=== PATIENT | female | born 1995 | race Caucasian/White ===

== ENCOUNTER 2017-04-21 21:26 | Inpatient (IN) | payer BC, OTHER ==
[~2017-04-21] VITALS: Ht 157.5 cm; Wt 45.4 kg
[2017-04-22 00:45] VITALS: BP 111/72
[2017-04-22] MEDS ORDERED: MIRALAX 17 GM POWD.PACK PO PRN (00:45)
[2017-04-22] MEDS ORDERED: ACETAMINOPHEN 325 MG TABLET PO PRN (00:45)
[2017-04-22] MEDS ORDERED: CLONIDINE HCL 0.1 MG TABLET PO PRN (00:45)
[2017-04-22] MEDS ORDERED: MAG HYDROX/AL HYDROX/SIMETH 30 ML LIQUID UDC PO PRN (00:45)
[2017-04-22] MEDS ORDERED: IBUPROFEN 400 MG TABLET PO PRN (00:45)
[2017-04-22] MEDS ORDERED: MAGNESIUM HYDROXIDE 30 ML LIQUID UDC PO PRN (00:45)
[2017-04-22] MEDS ORDERED: PROMETHAZINE HCL 25 MG/1 ML VIAL IM PRN (00:45)
[2017-04-22] MEDS ORDERED: ONDANSETRON ODT 4 MG TAB.RAPDIS SL PRN (00:45)
[2017-04-22] MEDS ORDERED: diphenhydrAMINE 50 MG CAPSULE PO PRN (00:45)
[2017-04-22] MEDS ORDERED: LOPERAMIDE HCL 2 MG CAPSULE PO PRN ×2 (00:45)
[2017-04-22] MEDS ORDERED: DICYCLOMINE HCL 20 MG TABLET PO PRN (00:45)
[2017-04-22] MEDS ORDERED: BUPRENORPHINE HCL 2 MG TAB.SUBL SL PRN (00:45)
--- NOTE | 2017-04-22 00:45 | NUR ---
PRE-ADMISSION NOTE: Patient assessed in intake office at 0045 on 04/22/2017. Patient is ambulatory with steady gate, stable, alert and oriented x4. Speech is soft and clear. VS: T: 98'1; BP: 111/72; HR: 79; RR: 18; O2 SAT: 100%. Pain level of generalized body aches:"05/27". Patient states that she is in the [facility] "first time for Safety Detox from Benzodiazepines and Heroin ". Patient reports last use Heroin IV:"04/21/17@ 1999"."Less than 1 gram. I do not remember amount of last doze exactly". Patient reports "Prescription drugs" uses: Clonazepam PO:"2 mg per day. Last taken 04/21/17: 2mg @ 1000 "; Sertraline PO:"200 mg per day Last taken 2 months ago: 200 mg"; Gabapentin PO:"1800 mg per day. Last taken 04/21/17: 600 mg @ 1200". Patient's COWS 9, CIWA 7. The patient reported the following symptoms of withdrawal: anxiety, agitation, nervousness, tremors, body aches, diaphoresis, abdominal cramps, headache, restless legs, and fatigue. Patient reports that she has been recently in "detox treatment at "[facility]": [place], [place] on 01/2017. Patient instructed on unit protocol of vitals Q4H and COWS/CIWA assessments. Patient verbalized understanding and agreement. Patient also instructed on policy regarding destruction of any controlled substances/prescriptions brought to facility, and handling of all medications. Patient verbalized understanding and agreement. Will complete admission assessment when patient is brought up to unit.
--- NOTE | 2017-04-22 00:50 | NUR ---
ADMISSION NOTE: Patient is a 22 old female admitted to [facility] on 04/22/17 at 0050 for Benzodiazepines and Opioid dependence. Patient is ambulatory with steady gate, stable, alert and oriented x4. Speech is soft and clear. Patient has NKA, is on Regular Diet, and is Full Code status. Patient is on Seizure and Fall Precautions. PMH: Anxiety, Depression, Substance Abuse, Tobacco dependence, Lupus, RA, Scoliosis, Fractures of left wrist (2016); Fracture of Ribs (2016); Fracture of Left foot (2016); Fracture of collar bone (2017). Patient has no PCP. Patient reports last use Heroin IV:"04/21/17@ 2000 less than 1 gram". Patient does "not remember amount of last doze exactly". Patient reports "prescription drugs" uses: Clonazepam PO:" 2 mg per day. Last taken 04/21/17: 2mg @ 1000 "; Sertraline PO:"200 mg per day Last taken 2 months ago: 200 mg"; Gabapentin PO:"1800 mg per day. Last taken 04/21/17: 600 mg @ 1200". Patient's COWS 9, CIWA 7. Patient reported the following symptoms of withdrawal: Anxiety, agitation, nervousness, tremors, body aches, diaphoresis, abdominal cramps, headache, restless legs, and fatigue. Patient reports that she has been recently in "Detox treatment at "[place], [place] on 01/2017. VS: T: 98'1; BP: 111/72; HR: 79; RR: 18; O2 SAT: 100%. Pain level of generalized body aches:"7/10". Breathing is even and unlabored. Patient denies chest pain and SOB. Lungs Sounds are clear bilaterally. Bowel Sounds are active in all 4 quadrants. Last bowel Movement was " 04/20/17, in the morning". Patient has track boss on the both upper extremities. Skin is warm and dry to touch. UDS test and Urine for Test collected and sent to Laboratory, as ordered. Doctor Rigoberto Steen MD aware for patient's condition. Patient. is oriented to her room and unit, education provided on Hep.C, substance abuse, falls and seizures. Patient did not brought her home medications. All needs met. Safety measures in the place. Call light within reach, bed in the lowest position, and locked, padded bed rails up x2. Will continue to monitor closely. Addendum: 04/22/17 at 1013 by NINFA CONSTANTINO RN Pt reports using Klonopin PO 1mg BID for the past 2 months and Heroin IV 1-3grams for the past 2 months.
[2017-04-22 01:31] LABS: ALANINE AMINOTRANSFERASE 99 U/L (14-59); ALKALINE PHOSPHATASE 118 U/L (50-136); AMYLASE 51 U/L (25-115); ASPARTATE AMINOTRANSFERASE 100 U/L (15-37); BILIRUBIN,TOTAL 0.2 mg/dL (0.2-1.0); CARBON DIOXIDE 29 mmol/L (21-32); CHLORIDE 101 mmol/L (98-107); CREATININE 0.7 mg/dL (0.6-1.3); GLUCOSE 118 mg/dL (74-106); LIPASE 155 U/L (73-393); MAGNESIUM 1.5 mg/dL (1.8-2.4); POTASSIUM 3.7 mmol/L (3.5-5.1); TOTAL PROTEIN, SERUM 7.8 g/dL (6.4-8.2); UREA NITROGEN, BLOOD 8 mg/dL (7-18)
[2017-04-22 01:37] LABS: BASOPHILS % (AUTO) 0.4 % (0.0-2.0); EOSINOPHILS # (AUTO) 0.4 K/uL (0.0-0.7); EOSINOPHILS % (AUTO) 5.7 % (0.0-7.0); HEMATOCRIT 40.8 % (37-47); HEMOGLOBIN 13.7 G/DL (12.0-16.0); LYMPHOCYTES # (AUTO) 1.7 K/UL (0.8-4.8); LYMPHOCYTES % (AUTO) 23.1 % (20.5-51.5); MEAN CORPUSCULAR HEMOGLOBIN 29.5 UUG (27.0-31.0); MEAN CORPUSCULAR HGB CONC 34 g/dL (32.0-37.0); MEAN CORPUSCULAR VOLUME 87.5 FL (81.0-99.0); MONOCYTES # (AUTO) 0.9 K/UL (0.1-1.30); MONOCYTES % (AUTO) 11.4 % (0.0-11.0); NEUTROPHILS # (AUTO) 4.5 K/UL (1.8-8.9); NEUTROPHILS % (AUTO) 59.4 % (38.5-71.5); PLATELET COUNT (AUTO) 303 K/UL (150-450); RED BLOOD CELL COUNT(AUTO) 4.66 MIL/UL (4.2-5.4); WHITE BLOOD COUNT (AUTO) 7.5 K/UL (4.0-11.2)
[2017-04-22 01:41] LABS: THYROID STIMULATING HORMONE 0.605 mIU/mL (0.358-3.740)
[2017-04-22] MEDS ORDERED: LORAZEPAM 1 MG TABLET PO PRN ×2 (01:45)
[2017-04-22] MEDS ORDERED: LORAZEPAM 2 MG/1 ML VIAL IM PRN (01:45)
[2017-04-22 02:22] LABS: ETHANOL < 3 MG/DL (0-0)
[2017-04-22 02:37] LABS: *URINE HCG, QUAL NEGATIVE (NEGATIVE)
[2017-04-22 02:38] LABS: *AMPHETAMINE, URINE NEGATIVE (NEGATIVE); *BARBITURATE, URINE NEGATIVE (NEGATIVE); *CANNABINOID, URINE NEGATIVE (NEGATIVE); *COCCAINE, URINE NEGATIVE (NEGATIVE); *OPIATE, URINE POSITIVE (NEGATIVE); *PHENCYCLIDINE SCREEN,URINE NEGATIVE (NEGATIVE)
[2017-04-22] MEDS ORDERED: CLON1TAB4 PO (03:13)
[2017-04-22] MEDS ORDERED: GABA600T2 PO (03:15)
[2017-04-22] MEDS ORDERED: SERT100T PO (03:22)
[2017-04-22 04:00] VITALS: BP 92/58
[2017-04-22] MEDS ORDERED: MAGNESIUM OXIDE 400 MG TABLET PO ONE (06:00)
--- NOTE | 2017-04-22 07:00 | NUR ---
END OF SHIFT NOTE: Patient endorsed to Jenna day shift nurse in stable condition. Patient is a 22 old female admitted to [facility] on 04/22/17 for Benzodiazepines and Opioid dependence. Patient has NKA, is on Regular Diet, and is Full Code status. Patient is on Seizure and Fall Precautions. PMH: Anxiety, Depression, Substance Abuse, Tobacco dependence, Lupus, RA, Scoliosis, Fractures of left wrist (2016); Ribs (2016); Left foot (2016); Collar bone (2017). Patient reports last use Heroin IV:"04/21/17@ 2000 less than 1 gram". Patient does "not remember amount of last doze exactly". Patient reports "prescription drugs" uses: Clonazepam PO:" 2 mg per day. Last taken 04/21/17: 2mg @ 1000 "; Sertraline PO:"200 mg per day Last taken 2 months ago: 200 mg"; Gabapentin PO:"1800 mg per day. Last taken 04/21/17: 600 mg @ 1200". COWS 8, CIWA 7 at 0400. Patient presented with the following symptoms of withdrawal: Anxiety, agitation, nervousness, tremors, body aches, diaphoresis, abdominal cramps, nasal stuffy, moist eyes, mild headache, restless legs, and fatigue. VS WNL. Magnesium Level at 0105: 1.5 mg/dl L. Replacement with Mag-Ox 400 mg 1 tab PO given as ordered at 0600. Patient tolerated well. Respiration is even and unlabored. Skin is warm and dry to touch. Track boss on the both upper extremities. Patient slept 3hours 30 minutes, intake 355 ml., voided x 1. All needs met. Safety measures in the place. Call light within reach, bed in the lowest position, and locked, padded bed rails up x2.
[2017-04-22] MEDS ORDERED: ONDANSETRON 4 MG/2 ML VIAL IM PRN (07:15)
--- NOTE | 2017-04-22 08:00 | NUR ---
START OF SHIFT Received report from wood preparation supervisor nurse. 22 year old female patient admitted on 04/21/17 for Heroin, Clonazepam dependence. Pt is A/O x4. Denies past seizure hx. Primary medical history of anxiety, depression, lupus, RA, and multiple bone fractures. Pt ambulates with steady gait. No acute distress noted throughout night. Pt slept for 3 hours. Most recent COWS 8 and CIWA 7. Safety precautions are in place, will continue to monitor.
[2017-04-22] MEDS ORDERED: TUBERCULIN,PURIF.PROT.DERIV. 5 TU/0.1 ML TEST ID ONE (09:00)
[2017-04-22 09:29] VITALS: BP 104/60
[2017-04-22] MEDS: MULTIVITAMINS,THERAPEUTIC TABLET PO SCH (10:05)
--- NOTE | 2017-04-22 10:13 | NUR ---
PRN MEDICATIONS PRN Subutex 4mg administered for COWS of 12, pt reports increased nausea, increased restlessness and anxiety, yawning, chills, PRN Ativan 1mg CIWA is 8, PRN Zofran for nausea, no emesis noted, PRN Bentyl for stomach cramps 5/10. Education provided. Will reassess.
--- NOTE | 2017-04-22 11:26 | NUR ---
REASSESSMENT Pt reports all medications were effective, denies nausea/cramps at this time. PRN Subutex and Ativan effective also, pt requests to rest at this time. Addendum: 04/22/17 at 1130 by NINFA CONSTANTINO RN COWS are 8, CIWA is 5.
[2017-04-22 12:37] VITALS: BP 103/63
[2017-04-22] MEDS: BUPRENORPHINE HCL 2 MG TAB.SUBL SL SCH ×3 (13:17→21:23)
[2017-04-22] MEDS: LORAZEPAM 1 MG TABLET PO SCH ×3 (13:17→20:44)
[2017-04-22] MEDS ORDERED: BUPRENORPHINE HCL 2 MG TAB.SUBL SL ONE (13:25)
[2017-04-22] MEDS ORDERED: LORAZEPAM 1 MG TABLET ONE (13:26)
--- NOTE | 2017-04-22 14:10 | NUR ---
Therapist advised client of group times. Client did not attend morning group because she was tired.
--- NOTE | 2017-04-22 14:20 | NUR ---
1300 MEDICATIONS 1317 Subutex 4mg and Ativan 2 mg administered as ordered. Override on Pyxis with charge nurse due to [employer] and pyxis communication error. Pharmacy aware.
[2017-04-22] MEDS: GABAPENTIN 300 MG CAPSULE PO SCH ×2 (14:28→20:43)
[2017-04-22] MEDS: METHOCARBAMOL 750 MG TABLET PO PRN (14:32)
--- NOTE | 2017-04-22 14:33 | NUR ---
PRN ROBAXIN Pt c/o 05/27 muscle aches, PRN Robaxin administered as ordered. Will reassess.
--- NOTE | 2017-04-22 15:32 | NUR ---
REASSESSMENT Pt states that the Robaxin was effective and denies muscle aches at this time.
[2017-04-22 17:01] VITALS: BP 104/63
--- NOTE | 2017-04-22 18:48 | NUR ---
END OF SHIFT Endorsed to assistant shift supervisor nurse. 22 year old female patient admitted on 04/21/17 for Heroin, Clonazepam dependence. Pt was started on a 5 day Subutex and 5 day Ativan taper and is tolerating well. Pt is A/O x4. Denies past seizure hx. Primary medical history of anxiety, depression, lupus, RA, and multiple bone fractures. Pt ambulates with steady gait. Most recent COWS 8 and CIWA 7. PRN Zofran, Ativan, Subutex and Robaxin administered and effective. Pt reports BM x1. All needs met at this time. Pt encouraged to attend group activities and meetings but chooses to rest today as withdrawal discomfort is present. Safety precautions are in place, will continue to monitor.
--- NOTE | 2017-04-22 18:48 | NUR ---
START OF SHIFT NOTE: Patient endorsed by outgoing day shift nurse in stable condition. Patient is a 22 old female admitted to [facility] on 04/22/17 for Benzodiazepines and Opioid dependence. Patient is on 5 Day Ativan Taper since 04/22/17, tolerated well. Patient has NKA, is on Regular Diet, and is Full Code status. Patient is on Seizure and Fall Precautions. PMH: Anxiety, Depression, Substance Abuse, Tobacco dependence, Lupus, RA, Scoliosis, Fractures of left wrist (2016); Ribs (2016); Left foot (2016); Collar bone (2017). COWS 8, CIWA 7 at 1701. Patient presented with the of withdrawal s/s: Anxiety, agitation, nervousness, resting pulse rate increased more than 80: "88" - record per minute, tremors, body aches, diaphoresis, nasal stuffy, moist eyes, mild headache, restlessness, fatigue, and yawning. VS WNL. Patient remains compliant with treatment plan, medications, and diet regimen. Respiration is even and unlabored. Breathing is even and unlabored. Patient denies chest pain and SOB. Lungs Sounds are clear bilaterally. Bowel Sounds are active in all 4 quadrants. Last Bowel Movement was " 04/22/17 at 1500". Skin is warm and dry to touch. Track boss on the both upper extremities. Encourage to fluids intake, as tolerated. All needs met. Safety measures in the place. Call light within reach, bed in the lowest position, and locked, padded bed rails up x2. Will continue to monitor closely. Addendum: 04/22/17 at 1954 by MEG SIMPSON RN Patient is on 5 Day Ativan and 5 Day Subutex Taper since 04/22/17, tolerated well.
[2017-04-22 20:00] VITALS: BP 112/77
[2017-04-22] MEDS: SERTRALINE HCL 100 MG TABLET PO SCH (21:23)
[2017-04-23] VITALS: BP 102/65
[2017-04-23 04:00] VITALS: BP 102/54
--- NOTE | 2017-04-23 06:56 | NUR ---
END OF SHIFT NOTE: Patient endorsed to Jenna day shift nurse in stable condition. Report given. Patient is a 22 old female admitted to [facility] on 04/22/17 for Clonazepam and Heroin dependence. Patient has NKA, is on Regular Diet, and is Full Code status. Patient is on Seizure and Fall Precautions. PMH: Anxiety, Depression, Substance Abuse, Tobacco dependence, Lupus, RA, Scoliosis, Fractures healed of left wrist, ribs, left foot (2016), and collar bone (2017). Latest COWS 5, CIWA 4 at 0400. During shift patient presented with the following symptoms of withdrawal: Anxiety, agitation, nervousness, restlessness, tremors that can be felt, body aches, diaphoresis, nasal stuffy, moist eyes, headache, and fatigue. VS @ 0400: T: 97'6, HR: 90, BP: 102/54, RA O2Sat: 95%, RR: 16. Respiration is even and unlabored. Skin is warm and dry to touch. Track boss on the both upper extremities. Patient remains compliant with treatment, medications, and diet regimen. Patient's educated of relaxation skills. Encourage to fluids intake, as tolerated. Encourage to attend activities and therapy groups regularly. Patient slept 4 hours, intake 1200 ml, voided x1. All needs met. Safety measures in the place. Call light within reach, bed in the lowest position, and locked, padded bed rails up x2.
[2017-04-23 08:00] VITALS: BP 109/68
--- NOTE | 2017-04-23 08:00 | NUR ---
START OF SHIFT NOte Received patient laying in bed AOx4. Patient presents drowsy and fatigued with flat affect. Patient complains of mild nausea, body aches, and anxiety. Patient on 5 day Subutex/ 5 day Ativan taper. She slept 4 hours. No PRNS given during hunter trapper. COWS 6 CIWA 9 at 0800 this morning. Encouraged patient to increase fluid intake to facilitate detox. Encouraged attendance of groups and activities. Will provide safe and supportive environment. Will monitor.
[2017-04-23 08:08] LABS: HEPATITIS B SURFACE AG Negative (Negative)
[2017-04-23] MEDS: MULTIVITAMINS,THERAPEUTIC TABLET PO SCH (08:56)
[2017-04-23] MEDS: BUPRENORPHINE HCL 2 MG TAB.SUBL SL SCH ×3 (08:56→21:12)
[2017-04-23] MEDS: LORAZEPAM 1 MG TABLET PO SCH ×3 (08:56→21:13)
[2017-04-23] MEDS: GABAPENTIN 300 MG CAPSULE PO SCH ×2 (08:56→14:38)
[2017-04-23] MEDS ORDERED: LIDOCAINE/PRILOCAINE 5 GM CREAM.GM. TP PRN (09:45)
[2017-04-23] MEDS ORDERED: BUPRENORPHINE HCL 2 MG TAB.SUBL SL ONE ×2 (09:45→18:45)
[2017-04-23] MEDS: IBUPROFEN 600 MG TABLET PO PRN (09:52)
--- NOTE | 2017-04-23 09:53 | NUR ---
PRN MEDS PRN Ibuprofen given for pain 8/10 in head and generalized pain.
--- NOTE | 2017-04-23 10:30 | NUR ---
PRN REASSESSMENT Patient sleeping calmly in bed with RR even and unlabored at 16. Bed locked and in lowest position and call sumner within reach. Will continue to monitor.
--- NOTE | 2017-04-23 10:56 | NUR ---
Endorsement received; Report received from previous nurse. Patient's last COWS is and CIWA of 9 at 0800. Patient is currently resting with eyes closed, respirations of 16 even and unlabored, easily awakened. Will continue to monitor patient. Addendum: 04/23/17 at 1335 by PAULIE VOGT LVN Clarification; COWS score is 6.
[2017-04-23 12:00] VITALS: BP 95/58
[2017-04-23] MEDS: BACLOFEN 10 MG TABLET PO SCH ×2 (14:38→21:13)
--- NOTE | 2017-04-23 15:17 | NUR ---
Nurse note; Due medications for 1500 held d/t patient appears sedated. MD notified. Safety measures secured. MD also notified regarding patient's LAB results including HEP C result. Will closely monitor patient.
[2017-04-23 16:00] VITALS: BP 124/75
[2017-04-23] MEDS: METHOCARBAMOL 750 MG TABLET PO PRN (17:08)
[2017-04-23] MEDS: HYDROXYZINE PAMOATE 25 MG CAPSULE PO PRN (17:08)
--- NOTE | 2017-04-23 17:08 | NUR ---
PRN medications; Patient is complaining of muscle aches, hot and cold sweats and anxiety. PRN Clonidine 0.1mg given for agitation, Robaxin 750mg PO given for muscle aches and Vistaril 50mg Given for anxiety. Will continue to monitor patient for effectiveness of medication.
--- NOTE | 2017-04-23 18:09 | NUR ---
Re-assessment; PRN medications effective, patient states decrease in hot and cold sweats, decreased muscle aches and patient appears calm and comfortable.
--- NOTE | 2017-04-23 18:40 | NUR ---
One time doses; Patient's Current COWS is 10 and CIWA score of 8 manifested by increase in anxiety, agitation, muscle aches, hot an cold sweats. MD notified, MD ordered one time dose of Ativan 1mg and Subutex 2mg One time dose. Will continue to monitor patient.
[2017-04-23] MEDS ORDERED: LORAZEPAM 1 MG TABLET PO ONE (18:45)
--- NOTE | 2017-04-23 18:53 | NUR ---
End of shift note; Patient is AOX4. Patient remained compliant with treatment plan. Medications were effective in reducing withdrawal symptoms. Report to given to night nurse,night nurse to re-assess patient for effectiveness of medication. all safety measures secured. Met all needs.
--- NOTE | 2017-04-23 18:53 | NUR ---
START OF SHIFT NOTE: Patient endorsed by outgoing day shift nurse. Report received. Patient is a 22 year old female admitted to [facility] for Heroin and Clonazepam dependence. Patient on 5 Day Ativan and 5 Day Subutex Taper since 04/22/17, tolerated well. Patient has NKA, is on Regular Diet, and is Full Code status. Patient is on Seizure and Fall Precautions. No Hx of Seizures. PMH: Anxiety, Depression, Lupus, RA, Substance Abuse, Tobacco dependence, Multiple Fractures of the left wrist, ribs, left foot, Collar bone. Last CIWA 8, COWS 10 at 1600. Patient presented with following withdrawal s/s of anxiety, agitation, nervousness, flashing, sweats, restlessness, and tremors that can be felt. Patient denies SI/HI. VSWNL remains stable during day shift. Respirations unlabored and even. Lungs Sounds are clear bilaterally. Bowel Sounds is active in all x4 quadrants. Last Bowel Movement was "today, 04/23/17 at 1100". Patient denies N/V/D. Skin is warm and moist by touch. Patient has tracks boss on both hands. No open wounds noted. Patient remains compliant with treatment plan and diet regimen. All needs met. Safety measures in place. Call light within reach, bed in the lowest position and lock, padded rails up x2. Addendum: 04/23/17 at 1945 by MEG SIMPSON RN Multiple Fractures healed of the left wrist, ribs, left foot, Collar bone.
--- NOTE | 2017-04-23 19:40 | NUR ---
RE-ASSESSMENT Patient is sleeping. Respirations even and unlabored. RR: 14. Ativan 1mg and Subutex 2mg one time dose, administrated by day shift nurse, was effective. All needs met. Safety measures in the place. Call light within reach, bed in the lowest position, and locked, padded bed rails up x2. Will continue to monitor closely.
[2017-04-23] MEDS ORDERED: GABAPENTIN 300 MG CAPSULE PO SCH (21:00)
[2017-04-23] MEDS: SERTRALINE HCL 100 MG TABLET PO SCH (21:13)
[2017-04-23 22:41] VITALS: BP 113/68
[2017-04-24] VITALS: BP 88/51
[2017-04-24 04:00] VITALS: BP 90/54
--- NOTE | 2017-04-24 07:02 | NUR ---
END OF SHIFT NOTE: Patient endorsed to day shift nurse in stable condition. Report given. Patient is a 22 old female admitted to [facility] on 04/22/17 for Benzodiazepines and Opioid dependence. Patient has NKA, is on Regular Diet, and is Full Code status. Patient is on Seizure and Fall Precautions. PMH: Anxiety, Depression, Substance Abuse, Tobacco dependence, Lupus, RA, Scoliosis, Fractures healed of left wrist, ribs, left foot (2016), and collar bone (2017). Latest COWS decreased from 5 to 3, CIWA from 4 to 3 at 0400. During shift patient presented with the following symptoms of withdrawal: Anxiety, agitation, nervousness, restlessness, tremors that can be felt, body aches, diaphoresis, nasal stuffy, moist eyes, headache, and fatigue. VS @ 0400: T: 97'4, HR: 78, BP: 90/54, RA O2Sat: 97%, RR: 16. Pain level: "0/10". Respirations even and unlabored. Skin is warm and dry to touch: Track boss on the both upper extremities. Patient remains compliant with treatment, medications, and diet regimen. Patient's educated of coping skills. Encourage to fluids intake, as tolerated. Encourage to attend activities and therapy groups regularly. Patient slept 10hours, [id number] ml, voided x1. All needs met. Safety measures in the place. Call light within reach, bed in the lowest position, and locked, padded bed rails up x2.
--- NOTE | 2017-04-24 07:46 | NUR ---
Start of shift note; Received patient laying in bed AOx4. Patient complains of body aches, and anxiety. Patient on 5 day Subutex/ 5 day Ativan taper. She slept 10 hours. COWS 3 CIWA 3 at 0400 this morning. Encouraged attendance of groups and activities. Patient is on fall and seizure precaution. Bed in lowest position, call light within reach. Will continue to monitor patient.
[2017-04-24 08:00] VITALS: BP 104/65
[2017-04-24] MEDS ORDERED: BUPRENORPHINE HCL 2 MG TAB.SUBL SL SCH (09:00)
[2017-04-24] MEDS: BACLOFEN 10 MG TABLET PO SCH (09:18)
[2017-04-24] MEDS: MULTIVITAMINS,THERAPEUTIC TABLET PO SCH (09:18)
[2017-04-24] MEDS: GABAPENTIN 300 MG CAPSULE PO SCH ×3 (09:19→20:38)
[2017-04-24] MEDS: LORAZEPAM 1 MG TABLET PO SCH ×4 (09:19→20:39)
[2017-04-24 11:54] LABS: BILIRUBIN,DIRECT 0.1 mg/dL (0.0-0.2); BILIRUBIN,TOTAL 0.1 mg/dL (0.2-1.0); CREATININE 0.7 mg/dL (0.6-1.3); MAGNESIUM 1.8 mg/dL (1.8-2.4); POTASSIUM 3.8 mmol/L (3.5-5.1); TOTAL PROTEIN, SERUM 7.7 g/dL (6.4-8.2)
[2017-04-24 12:00] VITALS: BP 130/85
[2017-04-24] MEDS ORDERED: BUPRENORPHINE HCL 2 MG TAB.SUBL SL ONE (13:45)
--- NOTE | 2017-04-24 13:55 | NUR ---
SUBUTEX X1 DOSE Pt was seen and evaluated by Dr. Gaspar with new x1 order of Subutex. Administered medication as ordered COWS score noted 8. All safety measures in place, Call light within reach. Will cont to monitor and reassess the pt.
--- NOTE | 2017-04-24 14:25 | NUR ---
Re-assessment; Re-assessed patient. Patient's current COWS score is 4 manifested by anxiety, muscle aches, stomach crams, mild hand tremors. Per MD okay to still give scheduled Subutex dose. Will closely monitor patient.
[2017-04-24] MEDS: BACLOFEN 20 MG TABLET PO SCH ×2 (14:39→20:39)
[2017-04-24] MEDS: BUPRENORPHINE HCL 2 MG TAB.SUBL SL SCH ×2 (14:57→20:59)
[2017-04-24] MEDS ORDERED: BACLOFEN 10 MG TABLET PO SCH (15:00)
[2017-04-24 16:00] VITALS: BP 97/66
--- NOTE | 2017-04-24 18:28 | NUR ---
End of shift note; Patient is AOX4. Patient on 5 day Subutex/ 5 day Ativan taper, no adverse reactions noted. last COWS 3 CIWA 3 at 1600. Encouraged attendance of groups and activities. Patient is on fall and seizure precaution. Patient remained compliant with treatment plan, medications were effective in reducing withdrawal symptoms. Bed in lowest position, call light within reach. Met all needs.
[2017-04-24 20:00] VITALS: BP 114/68
--- NOTE | 2017-04-24 20:00 | NUR ---
Start of Shift Pt is a 22 year old female admitted for Opiate/Benzo, placed on 5 day Ativan and 5 day Subutex taper. Pt reported using Heroin IV 1-3grams/daily, Clonazepam 2mg/daily. Pt also reported use of Sertraline and Gabapentin. PMH: Anxiety, depression, Lupus, RA, and fractures of left wrist, ribs, left foot, collar bone. NKA, fall/seizure precautions - no history of seizures, regular diet and full code. Upon assessment, Pt presents with muscle/joint aches, anxiety, abdominal cramping, skin sweaty/clammy - face flushed, respirations even/unlabored, denies SOB/chest pain, denies SI/HI, bowel sounds active x4, abdomen soft. Safety measures in place, call light within reach, side rails up x2, bed locked and in low position. Will continue to monitor.
[2017-04-24] MEDS: SERTRALINE HCL 100 MG TABLET PO SCH (20:39)
[2017-04-25] VITALS: BP 98/65
--- NOTE | 2017-04-25 | NUR ---
Vital Signs BP 98/65, Pulse 80, Respirations 16, SpO2 97%, temp 97.9 Pain 0/10 COWS/CIWA deferred d/t pt sleeping, to assess while pt is awake as ordered. Safety measures in place, will continue to monitor.
[2017-04-25 04:00] VITALS: BP 103/69
--- NOTE | 2017-04-25 04:00 | NUR ---
Vital Signs BP 103/69, Pulse 74, Respirations 12, SpO2 97%, temp 97.9 Pain 0/10 COWS/CIWA deferred d/t pt sleeping, to assess while pt is awake as ordered. Safety measures in place, will continue to monitor.
--- NOTE | 2017-04-25 07:00 | NUR ---
End of Shift Pt is a 22 year old female admitted for Opiate/Benzo, placed on 5 day Ativan and 5 day Subutex taper. Pt reported using Heroin IV 1-3grams/daily, Clonazepam 2mg/daily. Pt also reported use of Sertraline and Gabapentin. PMH: Anxiety, depression, Lupus, RA, and fractures of left wrist, ribs, left foot, collar bone. NKA, fall/seizure precautions - no history of seizures, regular diet and full code. During shift, Pt presented with muscle/joint aches, anxiety, abdominal cramping, skin sweaty/clammy - scheduled taper medications administered, effective in management of s/s of withdrawal, COWS 5. No PRN medications administered during shift. Pt slept for 8 hours, intake of 973 ml Po and voids x2. Safety measures in place, call light within reach, side rails up x2, bed locked and in low position. Endorsed to day shift nurse.
[2017-04-25 08:00] VITALS: BP 128/66
--- NOTE | 2017-04-25 08:00 | NUR ---
START OF SHIFT NOTE Patient is laying in bed comfortable. Respirations even and unlabored. Patient states "she didn't sleep well last night". No PRNs given last night, last CIWA 3 COWS 5 per night nurse. Patient was informed she is on room restriction for behavioral issues per administration. All safety measures in place. Call light within reach, bed in lowest position, and bed locked. Will continue to monitor patient.
[2017-04-25] MEDS: BACLOFEN 20 MG TABLET PO SCH ×3 (09:53→21:43)
[2017-04-25] MEDS: LORAZEPAM 1 MG TABLET PO SCH ×3 (09:54→21:43)
[2017-04-25] MEDS: MULTIVITAMINS,THERAPEUTIC TABLET PO SCH (09:54)
[2017-04-25] MEDS: GABAPENTIN 300 MG CAPSULE PO SCH ×3 (09:54→21:42)
[2017-04-25] MEDS: BUPRENORPHINE HCL 2 MG TAB.SUBL SL SCH ×3 (09:55→21:44)
--- NOTE | 2017-04-25 10:30 | NUR ---
Smoking education given and put in chart
[2017-04-25 13:15] VITALS: BP 98/67
[2017-04-25] MEDS: CLONIDINE HCL 0.1 MG TABLET PO SCH ×2 (15:58→21:43)
[2017-04-25 16:02] VITALS: BP 106/66
--- NOTE | 2017-04-25 19:17 | NUR ---
END OF SHIFT NOTE Patient is alert X 4, vital sign stable throughout the day. last COWS 7 CIWA 5. patietn is on 5 day Ativan 5 day Subutex taper tolerated well. Patient has been complaint with medications. She was seen by MD today. Patient is on room restrictions for behavioral issues per administration. All needs have been met. All safety measures in place; call light within reach, bed in lowest position, and wheels locked. No PRN meds given during day shift. Will endorse to natural resource manager nurse.
[2017-04-25 20:00] VITALS: BP 110/77
--- NOTE | 2017-04-25 20:00 | NUR ---
Start of Shift Pt is a 22 year old female admitted for Opiate/Benzo, placed on 5 day Ativan and 5 day Subutex taper. Pt reported using Heroin IV 1-3grams/daily, Clonazepam 2mg/daily. Pt also reported use of Sertraline and Gabapentin. PMH: Anxiety, depression, Lupus, RA, and fractures of left wrist, ribs, left foot, collar bone. NKA, fall/seizure precautions - no history of seizures, regular diet and full code. Pt is on room restriction for behavioral per administration. At time of assessment, pt presents with anxiety, is noted to be agitated, reports muscle/joint aches, skin sweaty/clammy - face flushed, respirations even/unlabored, denies SOB/chest pain, denies SI/HI, bowel sounds active x4, abdomen soft. Safety measures in place, call light within reach, side rails up x2, bed locked and in low position. Will continue to monitor.
[2017-04-25] MEDS: SERTRALINE HCL 100 MG TABLET PO SCH (21:43)
[2017-04-26] VITALS: BP 91/58
--- NOTE | 2017-04-26 | NUR ---
Vital Signs BP 91/58, Pulse 72, respirations 16, SpO2 97%, temp 98.1, no pain 0/10 CIWA/COWS deferred d/t pt sleeping - to assess while pt is awake as ordered. Safety measures in place. Will continue to monitor.
[2017-04-26 04:00] VITALS: BP 102/56
--- NOTE | 2017-04-26 04:00 | NUR ---
Vital Signs BP 102/56, Pulse 70, respirations 12, SpO2 98%, temp 98.8, no pain 0/10 CIWA/COWS deferred d/t pt sleeping - to assess while pt is awake as ordered. Safety measures in place. Will continue to monitor.
--- NOTE | 2017-04-26 07:00 | NUR ---
End of Shift Pt is a 22 year old female admitted for Opiate/Benzo, placed on 5 day Ativan and 5 day Subutex taper. Pt reported using Heroin IV 1-3grams/daily, Clonazepam 2mg/daily. Pt also reported use of Sertraline and Gabapentin. PMH: Anxiety, depression, Lupus, RA, and fractures of left wrist, ribs, left foot, collar bone. NKA, fall/seizure precautions - no history of seizures, regular diet and full code. Pt continues on room restriction for behavioral per administration. During shift, pt presented with anxiety, is noted to be agitated, reports muscle/joint aches, skin sweaty/clammy - face flushed - scheduled taper medications administered, COWS 6 and CIWA 4. No PRN medications administered during shift. Pt slept for 9 hours, intake of 591 ml PO and voids x2. Safety measures in place, call light within reach, side rails up x2, bed locked and in low position. Endorsed to day shift nurse.
--- NOTE | 2017-04-26 07:45 | NUR ---
START OF SHIFT Rcvd endorsement from ongoing nurse, client is in bed, alert and oriented x 4. She presents with anxious mood, flat affect, goosebump, dilated pupils, flushed face. She reports upset stomach and tightness around head. She denies any N/V/D. She denies any SI/HI. Encouraged client to increase fluid intake as tolerated to facilitate detox. Encouraged client to attend group therapy for skills on maintaining sobriety. she is on room restriction for behavioral issues per administration. She had an uneventful night, she slept 9 hrs. Last COWS 6/CIWA 4. NKA, regular diet, full code. She is on fall/seizure precautions - denies hx of withdrawal-induced seizures. Call light within reach. Bed in lowest/locked position. Side rails x 2 up/padded. Will continue to monitor.
[2017-04-26 08:10] VITALS: BP 108/63
[2017-04-26] MEDS: GABAPENTIN 300 MG CAPSULE PO SCH ×3 (09:50→22:23)
[2017-04-26] MEDS: BACLOFEN 20 MG TABLET PO SCH ×3 (09:50→22:23)
[2017-04-26] MEDS: LORAZEPAM 1 MG TABLET PO SCH ×2 (09:50→22:23)
[2017-04-26] MEDS: BUPRENORPHINE HCL 2 MG TAB.SUBL SL SCH ×2 (09:50→22:24)
[2017-04-26] MEDS: MULTIVITAMINS,THERAPEUTIC TABLET PO SCH (09:50)
[2017-04-26] MEDS: CLONIDINE HCL 0.1 MG TABLET PO SCH ×3 (09:51→21:00)
[2017-04-26 12:00] VITALS: BP 108/63
[2017-04-26 16:55] VITALS: BP 97/59
--- NOTE | 2017-04-26 19:04 | NUR ---
END OF SHIFT Endorsed client to incoming nurse, client is at patio on a cigarette break, she did not attend group therapy for skills to maintain sobriety, last COWS 5/CIWA 4, On DAY 4th of 5 day Ativan/Subutex, no ASE noted, Taper medication to help manage withdrawal symptoms such chills/colds, irritability, anxiety, flushed face. Client denies any N/V/D or SI/HI. Adequate intake 2800mL, she void x 4, stool x 1. NKA, regular diet, full code. She is on fall/seizure precautions - reports hx of withdrawal-induced seizures. Call light within reach. Bed in lowest/locked position. Side rails x 2 up/padded.
--- NOTE | 2017-04-26 19:05 | NUR ---
Start of shift note Received report from day shift nurse. Pt is a 22 yo female, A+Ox4, presenting to [facility] for Opiate/Benzo dependence. Pt has NKA, is Full Code status, and on Regular diet. Pt has HX of Anxiety, Depression, Multiple FXs, and Lupus. Pt is on 5 day Subutex and Ativan tapers, tolerated well. No s/s of distress noted at this time. Respirations even and unlabored. Will continue to monitor.
[2017-04-26 20:40] VITALS: BP 96/50
[2017-04-26] MEDS: SERTRALINE HCL 100 MG TABLET PO SCH (22:23)
[2017-04-27 00:19] VITALS: BP 93/50
[2017-04-27 04:44] VITALS: BP 88/49
--- NOTE | 2017-04-27 07:00 | NUR ---
End of shift note Pt is a 22 yo female, A+Ox4, presenting to [facility] for Opiate/Benzo dependence. Pt has NKA, is Full Code status, and on Regular diet. Pt has HX of Anxiety, Depression, Multiple FXs, and Lupus. Pt is on 5 day Subutex and Ativan tapers, tolerated well. Pt slept for a total of 11 HRS. Last COWS: 0 and Last CIWA: 0 @0400. No s/s of distress noted at this time. Respirations even and unlabored. Will endorse to day shift nurse.
--- NOTE | 2017-04-27 07:32 | NUR ---
START OF SHIFT NOTE Received patient laying in bed AOx4. Patient presents drowsy and fatigued with flat affect. Patient in and out of sleeping during morning assessment- appears difficult for her to stay awake. Patient on 5 day Subutex/ 5 day Ativan taper. She slept 11 hours. No PRNS given during caustic cresylate shift superintendent. Last COWS 0 CIWA 0 per caustic cresylate shift superintendent at 0400. Encouraged patient to notify RN if S/S of W/D worsen. Encouraged attendance of groups and activities. Will provide safe and supportive environment. Patient laying in bed with bed locked and in lowest position and call sumner within reach. Will monitor.
[2017-04-27 08:00] VITALS: BP 96/61
[2017-04-27] MEDS ORDERED: BUPRENORPHINE HCL 2 MG TAB.SUBL SL SCH (09:00)
[2017-04-27] MEDS: MULTIVITAMINS,THERAPEUTIC TABLET PO SCH (09:01)
[2017-04-27] MEDS: BACLOFEN 20 MG TABLET PO SCH ×3 (09:01→21:13)
[2017-04-27] MEDS: GABAPENTIN 300 MG CAPSULE PO SCH ×3 (09:01→21:13)
[2017-04-27] MEDS: CLONIDINE HCL 0.1 MG TABLET PO SCH ×3 (09:02→21:00)
[2017-04-27 12:00] VITALS: BP 101/65
[2017-04-27] MEDS: METHOCARBAMOL 750 MG TABLET PO PRN (12:52)
[2017-04-27] MEDS: HYDROXYZINE PAMOATE 25 MG CAPSULE PO PRN (12:52)
--- NOTE | 2017-04-27 12:53 | NUR ---
PRN MEDS PRN Robaxin and Vistaril given. Patient complains of anxiety and body aches 05/27 Will reassess
--- NOTE | 2017-04-27 13:30 | NUR ---
PRN REASSESSMENT Patient appears less anxious- quietly resting in bed watching TV. She states her body aches are about the same 7/10 on pain scale.
[2017-04-27] MEDS ORDERED: HYDR-3895 PO (15:11)
[2017-04-27] MEDS ORDERED: CLON0.1T14 PO (15:11)
[2017-04-27] MEDS ORDERED: DIPH50CA37 PO (15:11)
[2017-04-27] MEDS ORDERED: GABA-534 PO (15:11)
[2017-04-27] MEDS ORDERED: IBUP-1955 PO (15:11)
[2017-04-27] MEDS ORDERED: DICY20TA28 PO (15:11)
[2017-04-27] MEDS ORDERED: BACL20TA PO (15:11)
[2017-04-27 16:00] VITALS: BP 102/64
--- NOTE | 2017-04-27 18:31 | NUR ---
END OF SHIFT NOTE Patient scheduled for discharge tomorrow. Patient completed tapers. PRN Vistaril and Robaxin given during shift. Last COWS 3 CIWA 3. Patient reports mild anxiety and body aches during shift. She socialized with peers and attended groups and activities during shift. All needs have been met. Safety measures in place. Vital signs stable. Will pass shift report to oncoming nurse.
--- NOTE | 2017-04-27 19:15 | NUR ---
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 Pt is full code with NKA. She reports a PMHx of anxiety, depression, lupus, RA, and fractures on left wrist (2016), ribs (2016), left foot ( 2016) and collar bone (2017). Pt reports using Clonazepam PO 2 mg daily for 3 years. Last dose was 1 mg on 04/21/17. Heroin IV 1-2 grams daily for 6 years. Last dose was less than 1 gram on 04/21/17. Pt denies history of seizure. Pt placed on 5 day Subutex and 5 day Ativan taper started on 04/22/17. Per endorsement, pt is scheduled to be DC tomorrow 04/26/17. Pt received PRN Vistaril and Robaxin. Pt is alert and oriented x4, breathing is even and unlabored. Safety measures in place. Will continue to monitor.
[2017-04-27 20:00] VITALS: BP 90/54
--- NOTE | 2017-04-27 21:00 | NUR ---
NON ADMINISTERED MEDICATION 2100 dose of clonidine non administered d/t decreased BP: 90/54, HR:62. Will continue to monitor.
[2017-04-27] MEDS: SERTRALINE HCL 100 MG TABLET PO SCH (21:13)
[2017-04-27 22:45] LABS: *AMPHETAMINE, URINE NEGATIVE (NEGATIVE); *BARBITURATE, URINE NEGATIVE (NEGATIVE); *CANNABINOID, URINE NEGATIVE (NEGATIVE); *COCCAINE, URINE NEGATIVE (NEGATIVE); *PHENCYCLIDINE SCREEN,URINE NEGATIVE (NEGATIVE)
[2017-04-27 23:01] LABS: *OPIATE, URINE NEGATIVE (NEGATIVE)
[2017-04-28] VITALS: BP 89/50
[2017-04-28 04:00] VITALS: BP 93/54
--- NOTE | 2017-04-28 07:03 | NUR ---
END OF SHIFT Pt is a 22 year old female patient admitted on 04/21/17 for Heroin, and Clonazepam dependency. Pt is full code with NKA. She reports a PMHx of anxiety, depression, lupus, RA, and fractures on left wrist (2016), ribs (2016), left foot ( 2016) and collar bone (2017). Pt is scheduled to be DC today 04/28/17 to [facility]. Pt did not receive or request PRN medications. She slept a total of 8 hrs, Intake:1210 mL Void: x3 BM:0 COWS: 1, CIWA:3. Pt remains alert and oriented x4, breathing is even and unlabored. Safety measures in place. Will endorse to oncoming shift.
--- NOTE | 2017-04-28 07:25 | NUR ---
Start of shift note SBAR report rcv'd. Pt was admitted for opiate and benzo dependence. Pt has a PMHx of anxiety, depression, fractures, lupus, and RA. Pt has successfully completed a 5 day ativan and 5 day subutex taper without any ASE. Pt is scheduled to discharge today. Pt is currently resting in bed, pt has no complaints at this time. Will continue to monitor pt. All needs addressed at this time.
[2017-04-28 08:00] VITALS: BP 91/58
[2017-04-28 08:30] VITALS: BP 91/58
[2017-04-28] MEDS: CLONIDINE HCL 0.1 MG TABLET PO SCH (08:30)
--- NOTE | 2017-04-28 08:30 | NUR ---
PRN medication, medication held Pt c/o generalized body aches 5/10, administered motrin PRN. Pt BP is 91/58, held clonidine per order. Will continue to monitor pt, all other needs addressed at this time.
[2017-04-28] MEDS: GABAPENTIN 300 MG CAPSULE PO SCH (08:36)
[2017-04-28] MEDS: IBUPROFEN 600 MG TABLET PO PRN (08:37)
[2017-04-28] MEDS: BACLOFEN 20 MG TABLET PO SCH (08:37)
[2017-04-28] MEDS: MULTIVITAMINS,THERAPEUTIC TABLET PO SCH (08:37)
--- NOTE | 2017-04-28 09:54 | NUR ---
Discharge note Pt was admitted for opiate and benzo dependence. Pt has a COWS of 3 and a CIWA of 2. Pt VS are WNL. Pt LBM 04/28/17. Pt denies SI/HI. Pt states that she feels ready for discharge. Pt verbalized her understanding of the discharge instructions. Pt ID band removed, pt ambulated off of unit with [facility], left facility via [facility] for [facility].
[2017-04-29 15:11] LABS: *HCV QUANT 5420 IU/mL (.)
== END 2017-04-28 09:54 | disposition other institution (70) | DRG 895 ==
LOC: SRC 23:54
PROVIDERS: ADMIT Internal Medicine; ATTEND Internal Medicine
PROC: HZ2ZZZZ Detoxification Services for Substance Abuse Treatment (ICD-10-PCS; principal; 2017-04-21)
PROC: HZ31ZZZ Individual Counseling for Substance Abuse Treatment, Behavioral (ICD-10-PCS; 2017-04-22)
DX: F11.23 Opioid dependence with withdrawal (principal); F32.1 Major depressive disorder, single episode, moderate; F13.230 Sedative, hypnotic or anxiolytic dependence with withdrawal, uncomplicated; B19.20 Unspecified viral hepatitis C without hepatic coma; E83.42 Hypomagnesemia; F17.210 Nicotine dependence, cigarettes, uncomplicated; M06.9 Rheumatoid arthritis, unspecified; M32.9 Systemic lupus erythematosus, unspecified; M41.9 Scoliosis, unspecified; F41.9 Anxiety disorder, unspecified; Z81.1 Family history of alcohol abuse and dependence; R73.9 Hyperglycemia, unspecified
CPT/HCPCS: 36415; 80307; 80361; 83690; 83735; 84443; 84703; 85025; 86580; 86592; 86705; 86803; 87340; 87521; 87806; A4663; G0480; Q0162